=== PATIENT | male | born 1960 | race Caucasian/White ===

== ENCOUNTER 2021-02-01 08:31 | Inpatient (IN) | payer OTHER ==
[2021-02-01 09:23] LABS: BASOPHIL 0.3 % (0-2); EOSINOPHIL 0.5 % (0-5); HCT 44.8 % (42.0-52.0); HGB 15.9 g/dl (13.2-18.0); LYMPHOCYTE 21.7 % (15-48); MCH 33.6 pg (25.0-31.0); MCHC 35.5 g/dL (32.0-36.0); MCV 94.7 fL (78.0-100.0); MONOCYTE 10.4 % (0-12); MPV 9.6 fL (6.0-9.5); NEUTROPHIL 66.8 % (41-80); NRBC 0; PLT 117 K/uL (150-400); RBC 4.73 M/uL (4.70-6.00); RDW 13.4 % (11.5-14.0)
[2021-02-01 09:48] LABS: BUN/CREAT RATIO (CALC) 15.1 RATIO; CREATININE 0.73 mg/dL (0.67-1.17); POTASSIUM 3.7 mmol/L (3.5-5.1)
[2021-02-01] MEDS ORDERED: ASPIRIN81 MG PO (13:55)
[2021-02-01] MEDS ORDERED: ZESTRIL5 MG PO (13:56)
[2021-02-01] MEDS ORDERED: LIPITOR20 MG PO (13:56)
[2021-02-01] MEDS ORDERED: B12 ACTIVE1000 MCG PO (13:59)
[2021-02-01] MEDS ORDERED: DICLOFENAC SODI50 MG PO (14:00)
[2021-02-01] MEDS ORDERED: METFORMIN HCL500 MG PO (14:01)
[2021-02-02 07:28] LABS: HCT 41.2 % (42.0-52.0); HGB 14.8 g/dl (13.2-18.0); MCH 34.1 pg (25.0-31.0); MCHC 35.9 g/dL (32.0-36.0); MCV 94.9 fL (78.0-100.0); MPV 9.3 fL (6.0-9.5); RBC 4.34 M/uL (4.70-6.00); RDW 13.4 % (11.5-14.0); WBC 4.6 K/uL (4.0-10.5)
[2021-02-02 07:50] LABS: BUN/CREAT RATIO (CALC) 30.2 RATIO; CREATININE 0.63 mg/dL (0.67-1.17); POTASSIUM 4.1 mmol/L (3.5-5.1)
--- NOTE | 2021-02-02 14:25 | NUR ---
PT DECIDED THAT HE DIDN'T WANT THE CONVALESCENT PLASMA. PT STATED I DON'T KNOW WHO IT COME FROM SO I DON'T WANT TO TAKE IT. INFORMED DR. LEE AND LAB OF PT REFUSING.
[2021-02-03] MEDS ORDERED: ROBITUSSIN W/CODEINE PO (08:11)
[2021-02-03] MEDS ORDERED: DEXAMETHASONE 2M2 MG PO (08:11)
[2021-02-03] MEDS ORDERED: AZITHROMYCIN250 MG PO (08:11)
[2021-02-03] MEDS ORDERED: VITAMIN D325 MC1 PO (08:11)
[2021-02-03] MEDS ORDERED: ZINC SULFATE50 MG PO (08:11)
[2021-02-03] MEDS ORDERED: ASCORBIC ACID500 MG PO (08:11)
[2021-02-03] MEDS ORDERED: TESSALON PERLE100 M1 PO (08:12)
[2021-02-03] MEDS ORDERED: ROBITUSSIN W/COD5 ML PO (08:13)
[2021-02-03] MEDS ORDERED: COMBIVENT RESPIM4 GM INH (09:08)
--- NOTE | 2021-02-03 12:11 | NUR ---
02/03/21 Mr. Hauser did not have a preference for [facility]. [facility] declined the referral. A referral was made to [facility] and [facility]. A referral was made to [facility] . - Report given to MS EDITH Montalvo.
== END 2021-02-03 12:21 | disposition home health service (06) | DRG 177 ==
LOC: FER 08:31 → FMS 11:27
PROVIDERS: Emergency Medicine; Hospitalist; ADMIT Internal Medicine
PROC: XW033E5 Introduction of Remdesivir Anti-infective into Peripheral Vein, Percutaneous Approach, New Technology Group 5 (ICD-10-PCS; principal; 2021-02-01)
PROC: 8E0ZXY6 Isolation (ICD-10-PCS; 2021-02-01)
PROC: XW13325 Transfusion of Convalescent Plasma (Nonautologous) into Peripheral Vein, Percutaneous Approach, New Technology Group 5 (ICD-10-PCS; 2021-02-02)
DX: U07.1 COVID-19 (principal); J12.82 Pneumonia due to coronavirus disease 2019; J96.01 Acute respiratory failure with hypoxia; E11.9 Type 2 diabetes mellitus without complications; I10 Essential (primary) hypertension; Z98.890 Other specified postprocedural states
CPT/HCPCS: 36415; 36600; 71046; 71275; 80048; 82803; 84145; 84484; 85025; 85379; 93005; 94010; 94640; 94664; 94760; 94762; C9399; J0456; J0696; J1100; J1650; J7050; Q9967; U0002